=== PATIENT | male | born 1955 | race Caucasian/White ===

== ENCOUNTER 2018-08-01 07:50 | Day surgery (SDC) | payer OTHER ==
[~2018-08-01] VITALS: Ht 167.6 cm; Wt 67.6 kg
[~2018-08-01 07:50] MED LIST: ASPIR-LOW81 MG PO; CELEBREX200 MG PO; KEFLEX500 MG PO; LIPITOR40 MG PO; ROBAXIN500 MG PO; VITAMIN D35000 UNI1 PO
[2018-08-01] MEDS ORDERED: NORCO 7.5-3251 EACH PO (08:06)
[2018-08-01] MEDS ORDERED: KEFLEX500 MG PO (10:43)
[2018-08-01] MEDS ORDERED: HYDROCODON-ACE1 EA11 PO (10:43)
--- NOTE | 2018-08-01 11:03 | NUR ---
08/01/18 1103 [address] 1041 PT ARRIVED IN PACU NON-RESPONSIVE WITH ORAL AIRWAY IN PLACE. 1044 PT AWAKE. ORAL AIRWAY REMOVED. ICE TO R HAND AND ELEVATED ON PILLOWS. 1100 WARM BLANKETS PLACED ON PT. OXYGEN REMOVED. SATS 96% ON RA.
--- NOTE | 2018-08-01 11:20 | NUR ---
ICED WATER GIVEN. PATIENT TAKES SIPS AND TOLERATES THAT WELL. SPOUSE @ BS. CALL LIGHT W/IN REACH.
--- NOTE | 2018-08-01 12:52 | NUR ---
LE 1120: CALL TO DR. CAR REGARDING USE OF SLING. DR. CAR OKAYS APPLYING SLING TO RIGHT ARM. LE 1220: PATIENT UP TO BR W/RN STANDBY. PT AMBULATES WELL AND DENIES DIZZINESS. PT VOIDS AND REQ DC HOME. DC INSTRUCTIONS GIVEN IN PRESENCE OF PT'S SPOUSE AND BOTH VERBALIZE UNDERSTANDING. PT DRESSES SELF W/ASSIST OF SPOUSE. PT TRANSFERS SELF TO AND THEN PERSONAL VEHICLE AND DOES THAT WELL.
--- NOTE | 2018-08-02 07:45 | OR ---
[facility] [address] [place], [place] [address] Signed DATE OF OPERATION: 08/01/2018 SURGEON: Danna Lawrence MD PREOPERATIVE DIAGNOSIS: Fractures of right ring, middle, and small fingers. POSTOPERATIVE DIAGNOSIS: Fractures of right ring, middle, and small fingers. PROCEDURE PERFORMED: ORIF of right middle and ring finger. ARMORED TRANSPORT SERVICE MANAGER: KARTHIKEYAN Florentino was present in critical positioning, retraction, and wound closure. ANESTHESIA: General. BLOOD LOSS: Minimal. TOURNIQUET TIME: 55 minutes. IMPLANTS: A 2.0 six-hole straight plate and a 2.0 six-hole T-plate with 12 screws. BRIEF HISTORY: Deacon is a 63-year-old gentleman, who got his hand caught between a log grapple and a log essentially crushing the hand and fracturing the medial three metacarpals. He was cleaned up and his laceration was sewed up in and now he was referred to us. He was doing well with hand swelling and wished to proceed with operative intervention. It looked like we could approach the fractures through the laceration. Risks, benefits, and alternatives were discussed and he elected to proceed. DESCRIPTION OF PROCEDURE: Once consent was obtained, he was taken to the operating room. After adequate Electronically Signed By: DANNA LAWRENCE MD 08/02/18 0745 PATIENT NAME: DEACON MEEKS OPERATIVE REPORT DATE OF : 51 REPORT #: [id number] PHYSICIAN: DANNA LAWRENCE MD PCP: GUALBERTO ORTIZ MD REPORT IS CONFIDENTIAL AND NOT TO BE RELEASED WITHOUT AUTHORIZATION [facility] [address] [place], [place] [address] Signed anesthesia, he was placed on operating room table. All downside pressure points well padded. Right arm was placed in well-padded proximal arm tourniquet and prepped and draped in standard sterile fashion, exsanguinated using Esmarch bandage. Tourniquet inflated to 200 mmHg. The sutures removed from the dorsal laceration. The laceration was more of a skin tear than really a laceration, although it did go through the dermis. The tendons and underlying soft tissue including the periosteum was all intact. The middle metacarpal was approached 1st. The dorsal periosteum was opened and the soft tissue was cleared as well as all the blood clot. Fracture was then grabbed with a tenaculum, pulled distally and reduced quite nicely. The straight six-hole plate was then centered on this and a six holes were drilled and the plate was screwed to the fracture, checked using image intensifier and found to be satisfactorily aligned. The screw lengths were good. The 4th metacarpal was then approached. Next, the base of the 4th metacarpal was intact, however, it was broken just above that. Again, overlying periosteum was incised and elevated and the bone was grasped with a tenaculum and manipulated back into position. A six-hole T-plate was then placed at the base of the metacarpal aligned using the image intensifier and the screws were placed and appropriate length screws were used. Final radiographs showed good reduction of the 5th metacarpal. Fracture was stable. The wound edges were cleaned up and the periosteum was sutured over the plate using 3-0 Monocryl. The skin was then sutured using 2-0 nylon using a tension relieving stitch pattern. Excellent apposition was obtained. The wound was dressed with Mepilex Ag dressing, was placed in an ulnar gutter splint and taken to recovery room in satisfactory condition. All sponge, needle, and instrument counts were correct. Danna Lawrence MD BA/MODL /[id number] Copies: ~ Electronically Signed By: DANNA LAWRENCE MD 08/02/18 0745 PATIENT NAME: DEACON MEEKS OPERATIVE REPORT DATE OF : 51 REPORT #: [id number] PHYSICIAN: DANNA LAWRENCE MD PCP: GUALBERTO ORTIZ MD REPORT IS CONFIDENTIAL AND NOT TO BE RELEASED WITHOUT AUTHORIZATION
== END 2018-08-01 12:35 | disposition home or self-care (01) ==
LOC: OPS 07:50 → DS 09:30 → OPS 09:30
PROVIDERS: Specialist
PROC: 0PSP04Z Reposition Right Metacarpal with Internal Fixation Device, Open Approach (ICD-10-PCS; principal; 2018-08-01 09:30)
DX: S62.322B Displaced fracture of shaft of third metacarpal bone, right hand, initial encounter for open fracture (principal); S62.324A Displaced fracture of shaft of fourth metacarpal bone, right hand, initial encounter for closed fracture; S62.316A Displaced fracture of base of fifth metacarpal bone, right hand, initial encounter for closed fracture; G47.30 Sleep apnea, unspecified; W23.0XXA Caught, crushed, jammed, or pinched between moving objects, initial encounter; Z88.8 Allergy status to other drugs, medicaments and biological substances; Z79.82 Long term (current) use of aspirin; Z79.899 Other long term (current) drug therapy; Z99.89 Dependence on other enabling machines and devices; Z87.891 Personal history of nicotine dependence
CPT/HCPCS: 01830; 64417; 73130; 76942; C1713; J0330; J0690; J2250; J2704; J2795; J3010; J7120